=== PATIENT | female | born 1970 | race Caucasian/White ===

== ENCOUNTER 2018-09-16 08:34 | Day surgery (SDC) | payer OTHER ==
[~2018-09-16] VITALS: Ht 162.6 cm; Wt 75.3 kg
[2018-09-16] MEDS ORDERED: LIDOCAINE 2% 100 MG/5 ML UJET TP ONE (11:16)
[2018-09-16] MEDS ORDERED: fentaNYL 0.05 MG/ML VIAL ONE (11:16)
[2018-09-16] MEDS ORDERED: fentaNYL 0.05 MG/ML VIAL IVP ONE (12:15)
== END 2018-09-16 12:17 | disposition home or self-care (01) ==
LOC: MMU 08:34 → MOR 08:34
PROVIDERS: ATTEND Internal Medicine Gastroenterology
DX: Z12.11 Encounter for screening for malignant neoplasm of colon (principal); Z86.010 Personal history of colon polyps; Z90.710 Acquired absence of both cervix and uterus; Z88.0 Allergy status to penicillin
CPT/HCPCS: 45378; J3010